=== PATIENT | female | born 1995 | race African-American/Black ===

== ENCOUNTER → 2022-03-27 | Day surgery (SDC) | payer MEDICAID ==
[~2022-03-27] MED LIST: Acetaminophen 500 MG TAB ONE; Acetaminophen 500 MG TAB PO SCH; Iron Sucrose Complex 500 MG in Sodium Chloride 0.9% 250 ML 250 ML IVPB SCH
== END ==
LOC: CSHSDC/OP 08:48
PROVIDERS: ATTEND Student in an Organized Health Care Education/Training Program
DX: O99.019 Anemia complicating pregnancy, unspecified trimester (principal); D64.9 Anemia, unspecified
CPT/HCPCS: J1756; J7050

== ENCOUNTER 2022-04-04 04:36 | Inpatient (IN) | payer MEDICAID ==
[2022-04-04] MEDS ORDERED: hydrALAZINE 20 MG/ML VIAL SLOW IVP PRN ×2 (05:43→07:24)
[2022-04-04 05:44] VITALS: BMI 32.3
[2022-04-04] MEDS ORDERED: Misoprostol 200 MCG TAB PR PRN (07:24)
[2022-04-04] MEDS ORDERED: Acetaminophen 500 MG TAB PO PRN (07:24)
[2022-04-04] MEDS ORDERED: Ibuprofen 800 MG TAB PO PRN (07:24)
[2022-04-04] MEDS ORDERED: Carboprost 250 MCG/ML AMP IM PRN (07:24)
[2022-04-04] MEDS ORDERED: Diphenoxylate HCl/Atropine Tablet PO PRN (07:24)
[2022-04-04] MEDS ORDERED: Lidocaine 1% (PF) 30 ML VIAL SC PRN (07:24)
[2022-04-04] MEDS ORDERED: Promethazine HCl 25 MG/ML VIAL IM PRN ×2 (07:24→09:44)
[2022-04-04] MEDS ORDERED: Ondansetron PF 4 MG/2 ML Vial IVP PRN ×2 (07:24→09:44)
[2022-04-04] MEDS ORDERED: Methylergonovine 0.2 MG/ML VIAL IM PRN (07:24)
[2022-04-04] MEDS ORDERED: NS w/ Oxytocin 30 units 500 ML IV SCH ×2 (07:30)
[2022-04-04] MEDS ORDERED: Lactated Ringer's 1,000 ML IV SCH (07:30)
[2022-04-04 08:31] LABS: Hemoglobin 10.1 g/dL (12.0-15.5); Mean Corpuscular HGB CONC 32.9 g/dL (32.0-36.0); Mean Corpuscular Hemoglobin 27.3 pg (27.0-33.0); Platelet Count 270 10x3/uL (150-450); RBC Distribution Width 15.3 % (11.5-14.5); White Blood Cell (WBC) Count 7.3 10x3/uL (3.5-10.5)
[2022-04-04 09:08] LABS: HBSAg Index 0.18 S/CO (0-0.99); Hep B Surf Ag Non-Reactive S/CO (NonReactive)
[2022-04-04 09:09] LABS: Syphilis Antibody Nonreactive (Nonreactive); Syphilis Antibody Index 0.06 S/CO (<1.00 Non-Reactive)
[2022-04-04] MEDS ORDERED: diphenhydrAMINE 50 MG/ML VIAL IVP PRN (09:44)
[2022-04-04] MEDS ORDERED: ePHEDrine Sulfate 50 MG/10 ML VIAL SLOW IVP PRN (09:44)
[2022-04-04] MEDS ORDERED: Moisturizing Cream (Eucerin) 113 GM JAR TOP PRN (09:44)
[2022-04-04] MEDS ORDERED: Lactated Ringer's 500 ML IV PRN (09:44)
[2022-04-04] MEDS ORDERED: Naloxone HCl 0.4 mg/ml Vial IVP PRN ×2 (09:44)
[2022-04-04] MEDS ORDERED: Fentanyl 2 mcg/Bupivacaine 0.1% Cassette 100 ML EPIDURAL SCH (09:45)
[2022-04-04] MEDS ORDERED: Communication Order-Pharmacy FS SCH (09:45)
[2022-04-04] MEDS ORDERED: Fentanyl 2 mcg/Bup 0.1% Cadd 100 ML ONE (09:45)
[2022-04-04] MEDS: Acetaminophen 325 MG TAB PO PRN ×2 (13:21→21:55)
[2022-04-04] MEDS ORDERED: Bisacodyl 10 MG SUPP PR PRN (17:01)
[2022-04-04] MEDS ORDERED: Preparation H Ointment 28 GM TUBE PR PRN (17:01)
[2022-04-04] MEDS ORDERED: Lanolin Ointment 7 GM TUBE TOP PRN (17:01)
[2022-04-04] MEDS ORDERED: Milk Of Magnesia 30 ML UDCUP PO PRN (17:01)
[2022-04-04] MEDS ORDERED: Boostrix 0.5 ML (Tdap) VIAL (>/=7 yrs of age) IM ONE (17:01)
[2022-04-04] MEDS ORDERED: Bupivacaine/Epinephrine 0.25% 30 ML VIAL ONE (18:10)
[2022-04-04] MEDS: Ferrous Sulfate 325 MG TAB PO SCH (19:01)
[2022-04-05] MEDS: Ibuprofen 800 MG TAB PO SCH ×3 (00:37→17:05)
[2022-04-05] MEDS: Docusate 100 MG CAP PO SCH ×2 (00:38→08:10)
[2022-04-05 05:24] LABS: Hemoglobin 8.9 g/dL (12.0-15.5)
[2022-04-05] MEDS ORDERED: Cyclobenzaprine 10 MG TAB PO SCH (07:30)
[2022-04-05] MEDS: Ferrous Sulfate 325 MG TAB PO SCH ×2 (08:10→17:06)
[2022-04-05] MEDS ORDERED: Prenatal Vitamin 1 TAB PO SCH (09:00)
[2022-04-05] MEDS: Acetaminophen 325 MG TAB PO PRN (12:47)
[2022-04-05 16:38] VITALS: BP 102/51; TEMP 98.2
== END 2022-04-05 18:20 | disposition home or self-care (01) | DRG 807 ==
LOC: CSHLD/OP 04:36 → CSHLD 16:56 → CSHPP 18:25
PROVIDERS: ADMIT Student in an Organized Health Care Education/Training Program; ATTEND Student in an Organized Health Care Education/Training Program
PROC: 10E0XZZ Delivery of Products of Conception, External Approach (ICD-10-PCS; principal; 2022-04-04)
PROC: 0UQMXZZ Repair Vulva, External Approach (ICD-10-PCS; 2022-04-04)
DX: O99.02 Anemia complicating childbirth (principal); Z37.0 Single live birth; Z3A.39 39 weeks gestation of pregnancy; D64.9 Anemia, unspecified; O71.82 Other specified trauma to perineum and vulva
CPT/HCPCS: 36415; 51702; 85014; 85018; 85027; 86780; 86850; 86900; 86901; 87340; 99285; J2590